=== PATIENT | male | born 1970 | race Caucasian/White ===

== ENCOUNTER 2021-03-03 06:52 | Day surgery (SDC) | payer OTHER ==
[2021-03-03] MEDS ORDERED: fentaNYL 100 MCG/2 ML SDV ONE (07:06)
[2021-03-03] MEDS ORDERED: Propofol 200 MG/20 ML SDV ONE (07:07)
[2021-03-03] MEDS ORDERED: Midazolam 1 MG/ML 2 ML SDV ONE (07:07)
[2021-03-03] MEDS ORDERED: Sodium Chloride 0.9% 1,000 ML IV SCH (07:45)
--- NOTE | 2021-03-03 13:37 | OR ---
DATE OF PROCEDURE: 03/03/2021 SURGEON: Rahul Pressley MD PROCEDURE: Colonoscopy. FINDINGS: Inadequate colon prep with solid stool, scope was advanced to and past the transverse colon. However, the prep was not acceptable, less than 30% luminal surface could be seen. COMPLICATIONS: None. EARTH BURNER: None. ANESTHESIA: MAC. PREOPERATIVE DIAGNOSIS: Screening colonoscopy. POSTOPERATIVE DIAGNOSIS: Screening colonoscopy. RISKS: Risks, benefits, alternatives, and limitations including, but limited to infection, bleeding, perforation, false positives and false negatives were explained to patient who wished to proceed. PROCEDURE IN DETAIL: The patient was placed in left lateral decubitus position. Digital rectal exam was performed without abnormality. Scope was introduced and immediately it was noted the patient to have a large amount of solid stool remaining. This was consistent throughout the entire colon. No abnormalities were seen. However, due to the gross stool, this would not be considered a complete colonoscopy. The patient tolerated procedure well. Rahul Pressley MD /[id number]
== END 2021-03-03 09:10 | disposition home or self-care (01) ==
LOC: JP.SDS 06:52
PROVIDERS: ATTEND Surgery
DX: Z12.11 Encounter for screening for malignant neoplasm of colon (principal)
CPT/HCPCS: 45378; J2250; J2704; J3010; J7030

== ENCOUNTER 2021-03-07 06:22 | Day surgery (SDC) | payer OTHER ==
[2021-03-07] MEDS ORDERED: Propofol 200 MG/20 ML SDV ONE (06:47)
[2021-03-07] MEDS ORDERED: fentaNYL 100 MCG/2 ML SDV ONE (06:47)
[2021-03-07] MEDS ORDERED: Midazolam 1 MG/ML 2 ML SDV ONE (06:47)
[2021-03-07] MEDS ORDERED: Sodium Chloride 0.9% 1,000 ML IV SCH (07:00)
--- NOTE | 2021-03-07 09:56 | OR ---
DATE OF PROCEDURE: 03/07/2021 SURGEON: Rahul Pressley MD PROCEDURE: Colonoscopy. FINDINGS: Sigmoid colon polyp, approximately 8 mm, completely removed using hot snare wire device. COMPLICATIONS: None. POT BUILDER: None. ANESTHESIA: MAC. PREOPERATIVE DIAGNOSIS: Screening colonoscopy. POSTOPERATIVE DIAGNOSIS: Screening colonoscopy. RISKS: Risks, benefits, alternatives, and limitations including but not limited to infection, bleeding, or false positives and false negatives were explained to patient who wished to proceed. PROCEDURE IN DETAIL: The patient was placed in left lateral decubitus position. Digital rectal exam was performed without abnormality. The scope was introduced and advanced atraumatically to ileocecal valve. A photo was taken. The scope was brought back to the ascending, transverse, and descending colon and retroflexed. No evidence of old or new blood. No masses. The aforementioned polyp was identified and completely removed. No colitis. No significant hemorrhoids. No abnormalities on retroflexion. The prep was acceptable, approximately 90% of luminal surface could be seen. Greater than 8 minutes was spent removing the scope. The patient tolerated the procedure well. Rahul Pressley MD /[id number]
== END 2021-03-07 09:21 | disposition home or self-care (01) ==
LOC: JP.SDS 06:22
PROVIDERS: ATTEND Surgery
DX: Z12.11 Encounter for screening for malignant neoplasm of colon (principal); D12.5 Benign neoplasm of sigmoid colon
CPT/HCPCS: 45385; J2250; J2704; J3010; J7030; 88305